=== PATIENT | male | born 1960 | race Caucasian/White ===

== ENCOUNTER → 2024-06-19 07:15 | Outpatient (REF) | payer OTHER, SELFPAY | LOC: RAD 07:15 | PROVIDERS: ATTENDING PHYSICIAN Physician Assistant | DX: R10.32 Left lower quadrant pain (principal) | CPT/HCPCS: 76882 ==

== ENCOUNTER 2024-10-23 06:17 | Day surgery (SDC) | payer OTHER, SELFPAY ==
[2024-10-11 08:52] LABS: Hematocrit 39.6 % (39.0-52.0); Hemoglobin 13.1 g/dL (13.0-18.0); Mean Corp Hgb Conc. 33.1 g/dL (33.0-37.0); Mean Corpuscular Hgb 32.5 pg (27.0-31.0); Mean Corpuscular Volume 98.3 fL (80.0-94.0); Mean Platelet Volume 11.5 fL (7.4-10.4); Platelet Count 295 10^3/uL (130-400); Red Blood Cell Count 4.03 10^6/uL (4.70-6.10); Red Cell Dist. Width 14.3 % (11.5-14.5); White Blood Cell Count 5.5 10^3/uL (4.8-10.8)
[2024-10-11 09:21] LABS: Blood Urea Nitrogen 20 mg/dl (9-20); Calcium 9.1 mg/dl (8.4-10.2); Carbon Dioxide 33 mmol/L (22-30); Chloride 107 mmol/L (98-107); Glucose 83 mg/dl (70-99); Potassium 4.5 mmol/L (3.5-5.1); Sodium 142 mmol/L (135-145); eGFR > 60.00
[2024-10-11 13:52] VITALS: BMI 25.4
[2024-10-23] VITALS (8 sets, daily range): BP systolic 140–182; BP diastolic 71–110; BMI 25.4
--- NOTE | 2024-10-23 06:57 | HP.FOC2 ---
Focused History & Physical
Chief Complaint
HPI:
Chief Complaint: Bilateral inguinal hernias
HPI / Indication for Planned Procedure: Patient is a 64-year-old male recently seen in outpatient surgical evaluation secondary to a few week history of left groin pain initially noted after shoveling during a snowstorm. He has since had occasional
discomfort and visible swelling with an awareness of his hernia being present. Subsequent outpatient surgical evaluation confirmed the presence of the anticipated left inguinal hernia as well as a reducible right inguinal hernia. After our
discussions patient wished to pursue operative correction. He presents today for robotic assisted laparoscopic repair of bilateral inguinal hernias with mesh
Relevant Past Medical History: Other (Hypertension, spinal cord injury T11-T12 with temporary paralysis of the lower extremities resolved, P A-fib, insomnia, anxiety, sleep apnea on CPAP)
Relevant Social History: Negative
Relevant Family History: Negative
Relevant Past Surgical History: Positive for (Decompressive laminectomy/medial discectomy T10-T11)
Review of Systems
Review of Pertinent Systems: All Systems Negative
Medication
See Medication form for detailed medications: Yes
Medication List (including Herbals & OTC):
metoprolol tartrate 50 mg tablet 50 mg PO BID 05/26/15
ascorbic acid (vitamin C) 1,000 mg tablet (Vitamin C) 1,000 mg PO DAILY 03/13/17
multivitamin 1 ea PO DAILY 03/13/17
aspirin 81 mg tablet 81 mg PO DAILY 10/17/24
eszopiclone 3 mg tablet (Lunesta) 3 mg PO HS insomnia 10/17/24
lisinopril 20 mg tablet 20 mg PO DAILY 10/17/24
vitamin B complex 1 cap PO DAILY 10/17/24
zaleplon 10 mg capsule 10 mg PO HS PRN Insomnia 10/17/24
Medications Reviewed: Yes
Allergies and Reactions
Patient has Allergies: No
Noted Allergies and Reactions:
Allergy/AdvReac Type Severity Reaction Status Date / Time
No Known Allergies Allergy Verified 10/17/24 08:20
Pertinent Physical Exam
All Other Systems: Negative
Head/Neck: Normal
Lungs: Normal
Heart: Normal
Abdomen: Other (Bilateral inguinal hernias, left larger than right)
Extremities: Normal
Neurological: Normal
Diagnosis / Assessment
64-year-old male presenting for scheduled operative correction of bilateral inguinal hernias
Plan / Procedure
Robotic assisted laparoscopic repair of bilateral inguinal hernias with mesh
Anesthesia/Sedation to be done by Anesthesia Provider: Yes
[2024-10-23] MEDS: TYLENOL 1000 MG PO (07:41)
--- NOTE | 2024-10-23 08:02 | W.SUR.PREOP ---
Pre-Operative Surgical Note
-
I have examined this patient prior to the performance of the scheduled procedure.
The patient's condition is unchanged from the time of the current History and
Physical and the patient is able to undergo the scheduled procedure.
[2024-10-23] MEDS: NORMOSOL-R/PLASMALYTE-A 1000 IV (08:09)
--- NOTE | 2024-10-23 10:27 | W.IMMPOSTOP ---
Addendum entered and electronically signed by Rigoberto Funk MD 10/23/24 10:54:
#[id number]
Original Note:
Surgical Immed Post Op Note
-
Primary Surgeon: Rigoberto Funk MD
Assisting Surgeon: Chaya Gonzalez PA-c
Pre-op Diagnosis: Bilateral inguinal hernias
Post-op Diagnosis: Bilateral inguinal hernias; right direct, left indirect
Procedure Performed: Robotic assisted laparoscopic repair bilateral inguinal hernias with mesh; 3D max large mid weight
Anesthesia Type: GETA +0.25% Marcaine
Specimen / Cultures: None
Estimated Blood Loss: 8 mL
Complications: None immediate
Operative Findings: Right direct inguinal hernia. Indirect and femoral space normal. No lipoma of cord structures appreciated. Pseudosac reduced to coopers with 2-0 Vicryl stitch x 1. 3D max large mid weight mesh repair.
Left indirect inguinal hernia. Direct and femoral space normal. No lipoma of cord structures appreciated. 3D max large mid weight mesh repair.
The assistance of Chaya Gonzalez PA-C was required due to the complexity of the procedure. During the procedure Chaya Gonzalez PA-C assisted with port placement, robotic instrumentation and suture material exchanges, and closure of the surgical incision
sites. I was present for the entirety of the operative procedure.
== END 2024-10-23 11:58 | disposition home or self-care (01) ==
LOC: SDS 06:17
PROVIDERS: ATTENDING PHYSICIAN Surgery; FAMILY PHYSICIAN Internal Medicine
DX: K40.20 Bilateral inguinal hernia, without obstruction or gangrene, not specified as recurrent (principal)
CPT/HCPCS: 49650; 80048; 85027; 93005; C1781